=== PATIENT | male | born 1970 | race African-American/Black ===

== ENCOUNTER 2018-04-26 11:56 | Day surgery (SDC) | payer OTHER | END 2018-04-26 14:21 | disposition home or self-care (01) | LOC: GIL 11:56 | DX: D12.6 Benign neoplasm of colon, unspecified (principal); K57.90 Diverticulosis of intestine, part unspecified, without perforation or abscess without bleeding; Z80.0 Family history of malignant neoplasm of digestive organs | CPT/HCPCS: 45380; 88305 ==